=== PATIENT | female | born 1955 | race Caucasian/White ===

== ENCOUNTER 2021-01-25 13:38 | Observation (INO) ==
[2021-01-25 14:24] LABS: Basophils % 0.4 % (0.0-0.8); Eosinophils % 10.5 % (0.00-10.9); Hematocrit 41.1 VOL% (35.7-47.0); Hemoglobin 12.8 GM/DL (12.0-16.0); Immature Granulocytes % 0.3 %; Immature Granulocytes Absolute 0.03 #; Lymphocytes # 1.1 10*3/uL (1.4-4.0); Lymphocytes % 12.1 % (21.3-54.2); Mean Corpuscular HGB Conc 31.1 GM/DL (32-36); Mean Corpuscular Volume 101.2 FL (87-102); Monocytes % 8.3 % (1.7-12.7); Neutrophils % 68.4 % (38.7-73.9); Platelet Count 262 T/CUMM (130-400); Red Blood Count 4.06 MC/CUMM (3.8-5.5)
[2021-01-25 14:36] LABS: Albumin 3.5 G/DL (3.4-5.0); Bilirubin,Total 0.4 MG/DL (0.2-1.0); Calcium 9.4 MG/DL (8.5-10.1); Osmolality,Calculated 275.8 MOS/KG (273-304); Potassium 4.3 MMOL/L (3.5-5.1); Total Protein 7.3 G/DL (6.4-8.2)
[2021-01-25] MEDS ORDERED: cefTRIAXone 1,000 MG in SODIUM CHLORIDE 0.9% 100 ML IV STA (15:07)
[2021-01-25 15:18] LABS: PT Patient Result 10.3 SECS (9.8-11.9)
[2021-01-25] MEDS ORDERED: DEXTROSE 50% 25 GM/50 ML VIAL IV PRN (17:03)
[2021-01-25] MEDS ORDERED: hydrALAZINE 20 MG/1 ML VIAL IV PRN (17:03)
[2021-01-25] MEDS ORDERED: GLUCAGON 1 MG VIAL IM PRN (17:03)
[2021-01-25] MEDS ORDERED: ONDANSETRON 4 MG/2 ML VIAL IV PRN (17:03)
[2021-01-25] MEDS ORDERED: DOCUSATE SODIUM 100 MG CAPSULE PO PRN (17:03)
[2021-01-25] MEDS ORDERED: ACETAMINOPHEN 325 MG TABLET PO PRN (17:03)
[2021-01-25] MEDS: ALBUTEROL 2.5 MG/3 ML NEB RESP TX SCH (20:30)
[2021-01-25] MEDS: INSULIN REGULAR 100 UNIT/ML SUBCUT SCH (21:30)
[2021-01-25] MEDS: guaiFENesin/DM ER 600-30 MG TABLET PO SCH (22:42)
[2021-01-25] MEDS: glipiZIDE 10 MG TABLET PO SCH (22:43)
[2021-01-25] MEDS: MONTELUKAST 10 MG TABLET PO SCH (22:43)
[2021-01-25] MEDS: CETIRIZINE 10 MG TABLET PO SCH (22:43)
[2021-01-25] MEDS: GABAPENTIN 600 MG TABLET PO SCH (22:44)
[2021-01-25] MEDS: sitaGLIPtin 100 MG TABLET PO SCH (22:51)
[2021-01-25] MEDS: methylPREDNISolone SOD SUC 125 MG/2 ML VIAL IV SCH (23:00)
[2021-01-25] MEDS: ENOXAPARIN 40 MG/0.4 ML SYRINGE SUBCUT SCH (23:02)
[2021-01-25] MEDS: AZITHROMYCIN INJ 500 MG in SODIUM CHLORIDE 0.9% 250 ML IV SCH (23:03)
[2021-01-26] MEDS: ALBUTEROL 2.5 MG/3 ML NEB RESP TX SCH ×4 (00:38→19:27)
[2021-01-26] MEDS: methylPREDNISolone SOD SUC 125 MG/2 ML VIAL IV SCH ×4 (01:07→19:38)
[2021-01-26 02:33] LABS: Bilirubin,Urine Negative (Negative); Blood, Urine Negative (Negative); Glucose,Urine (UA) Negative (Negative); Ketones,Urine Negative (Negative); Nitrite,Urine Negative (Negative); Protein,Urine Negative; RBC,Urine <1 /HPF (0-4); Squamous Epithelial Cell,Urine Occasional /HPF (0-10); Urine Appearance CLEAR (Clear); Urine Color Straw (Yellow); Urine Specific Gravity 1.011 (1.001-1.035); Urine Urobilinogen < 2.0 EU/DL (0.2-1.0); WBC,Urine 3 /HPF (0-6)
[2021-01-26 05:14] LABS: Basophils % 0.1 % (0.0-0.8); Eosinophils % 0.2 % (0.00-10.9); Hematocrit 38.8 VOL% (35.7-47.0); Hemoglobin 12.4 GM/DL (12.0-16.0); Immature Granulocytes % 0.4 %; Immature Granulocytes Absolute 0.04 #; Lymphocytes # 0.4 10*3/uL (1.4-4.0); Lymphocytes % 4.2 % (21.3-54.2); Mean Platelet Volume 10.8 FL (9.6-12.0); Monocytes % 1.3 % (1.7-12.7); Neutrophils % 93.8 % (38.7-73.9); Platelet Count 248 T/CUMM (130-400); Red Blood Count 3.92 MC/CUMM (3.8-5.5); Red Cell Distribution Width 13.8 % (9.3-17.3); White Blood Count 9.2 T/CUMM (4-12)
[2021-01-26 05:40] LABS: Calcium 9.5 MG/DL (8.5-10.1); Potassium 4.2 MMOL/L (3.5-5.1); Risk Ratio 2.69; Thyroid Stimulating Hormone 1.3 uIU/ml (0.358-3.74); VLDL CHOLESTEROL 25.2 MG/DL
[2021-01-26 05:50] LABS: Lymphocytes 4 % (20-55); Platelet Estimate Adequate; Segmented Neutrophils 94 % (50-85); Total Cells Counted 100
[2021-01-26 05:51] LABS: Hypochromasia Slight
[2021-01-26] MEDS: LEVOTHYROXINE 88 MCG TABLET PO SCH (06:32)
[2021-01-26] MEDS: INSULIN REGULAR 100 UNIT/ML SUBCUT SCH ×3 (09:39→18:56)
[2021-01-26] MEDS: guaiFENesin/DM ER 600-30 MG TABLET PO SCH ×2 (09:42→21:10)
[2021-01-26] MEDS: glipiZIDE 10 MG TABLET PO SCH ×2 (09:42→21:09)
[2021-01-26] MEDS: MULTIVITAMIN (CENTRUM) TABLET PO SCH (09:43)
[2021-01-26] MEDS: PANTOPRAZOLE 40 MG TABLET PO SCH (09:43)
[2021-01-26] MEDS: ASPIRIN EC 81 MG TABLET PO SCH (09:43)
[2021-01-26] MEDS: SIMVASTATIN 10 MG TABLET PO SCH (09:43)
[2021-01-26] MEDS: GABAPENTIN 600 MG TABLET PO SCH ×3 (09:43→21:10)
[2021-01-26] MEDS: LISINOPRIL/HCTZ 20-12.5 MG TABLET PO SCH (09:43)
[2021-01-26] MEDS: cefTRIAXone 1,000 MG in SYRINGE 1 EACH IV SCH (18:51)
[2021-01-26] MEDS: AZITHROMYCIN INJ 500 MG in SODIUM CHLORIDE 0.9% 250 ML IV SCH (21:09)
[2021-01-26] MEDS: ENOXAPARIN 40 MG/0.4 ML SYRINGE SUBCUT SCH (21:09)
[2021-01-26] MEDS: sitaGLIPtin 100 MG TABLET PO SCH (21:09)
[2021-01-26] MEDS: BUDESONIDE/FORMOTEROL 160-4.5 INHALER 6 GM INH SCH (21:10)
[2021-01-26] MEDS: CETIRIZINE 10 MG TABLET PO SCH (21:10)
[2021-01-26] MEDS: MONTELUKAST 10 MG TABLET PO SCH (21:10)
[2021-01-27] MEDS: ALBUTEROL 2.5 MG/3 ML NEB RESP TX SCH ×4 (00:40→19:27)
[2021-01-27] MEDS: INSULIN REGULAR 100 UNIT/ML SUBCUT SCH ×5 (01:29→21:30)
[2021-01-27] MEDS: methylPREDNISolone SOD SUC 125 MG/2 ML VIAL IV SCH ×4 (01:29→19:37)
[2021-01-27 06:00] LABS: Basophils % 0.1 % (0.0-0.8); Hematocrit 38.2 VOL% (35.7-47.0); Hemoglobin 11.7 GM/DL (12.0-16.0); Immature Granulocytes % 0.7 %; Immature Granulocytes Absolute 0.09 #; Lymphocytes # 0.6 10*3/uL (1.4-4.0); Lymphocytes % 4.4 % (21.3-54.2); Mean Corpuscular HGB Conc 30.6 GM/DL (32-36); Mean Corpuscular Volume 100.3 FL (87-102); Mean Platelet Volume 10.8 FL (9.6-12.0); Monocytes % 3.3 % (1.7-12.7); Neutrophils % 91.5 % (38.7-73.9); Platelet Count 276 T/CUMM (130-400); Red Blood Count 3.81 MC/CUMM (3.8-5.5); Red Cell Distribution Width 13.9 % (9.3-17.3); White Blood Count 12.9 T/CUMM (4-12)
[2021-01-27] MEDS: LEVOTHYROXINE 88 MCG TABLET PO SCH (06:01)
[2021-01-27 06:15] LABS: Calcium 9.2 MG/DL (8.5-10.1); Osmolality,Calculated 287.8 MOS/KG (273-304); Potassium 4.4 MMOL/L (3.5-5.1)
[2021-01-27 06:16] LABS: Calcium 9.1 MG/DL (8.5-10.1); Osmolality,Calculated 289.7 MOS/KG (273-304); Potassium 4.5 MMOL/L (3.5-5.1)
[2021-01-27 06:29] LABS: Hypochromasia 1+; Lymphocytes 5 % (20-55); Microcytosis 1+; Platelet Estimate Adequate; Segmented Neutrophils 92 % (50-85); Total Cells Counted 100
[2021-01-27] MEDS: ASPIRIN EC 81 MG TABLET PO SCH (09:38)
[2021-01-27] MEDS: PANTOPRAZOLE 40 MG TABLET PO SCH (09:39)
[2021-01-27] MEDS: guaiFENesin/DM ER 600-30 MG TABLET PO SCH ×2 (09:39→21:45)
[2021-01-27] MEDS: MULTIVITAMIN (CENTRUM) TABLET PO SCH (09:39)
[2021-01-27] MEDS: SIMVASTATIN 10 MG TABLET PO SCH (09:39)
[2021-01-27] MEDS: LISINOPRIL/HCTZ 20-12.5 MG TABLET PO SCH (09:40)
[2021-01-27] MEDS: GABAPENTIN 600 MG TABLET PO SCH ×3 (09:42→21:45)
[2021-01-27] MEDS: glipiZIDE 10 MG TABLET PO SCH ×2 (09:43→21:43)
[2021-01-27] MEDS: BUDESONIDE/FORMOTEROL 160-4.5 INHALER 6 GM INH SCH ×2 (10:51→21:45)
[2021-01-27] MEDS: FLUTICASONE 50 MCG NASAL SPRAY 16 GM BOTTLE BOTH NARES SCH (17:03)
[2021-01-27] MEDS: cefTRIAXone 1,000 MG in SYRINGE 1 EACH IV SCH (19:37)
[2021-01-27] MEDS: sitaGLIPtin 100 MG TABLET PO SCH (21:44)
[2021-01-27] MEDS: ENOXAPARIN 40 MG/0.4 ML SYRINGE SUBCUT SCH (21:44)
[2021-01-27] MEDS: MONTELUKAST 10 MG TABLET PO SCH (21:45)
[2021-01-27] MEDS: CETIRIZINE 10 MG TABLET PO SCH (21:45)
[2021-01-28] MEDS: ALBUTEROL 2.5 MG/3 ML NEB RESP TX SCH ×3 (00:17→13:05)
[2021-01-28 05:51] LABS: Basophils % 0.2 % (0.0-0.8); Eosinophils # 0.1 10*3/uL (0.0-0.87); Eosinophils % 0.8 % (0.00-10.9); Hematocrit 40.3 VOL% (35.7-47.0); Hemoglobin 12.4 GM/DL (12.0-16.0); Immature Granulocytes % 0.8 %; Lymphocytes # 1.5 10*3/uL (1.4-4.0); Lymphocytes % 11.7 % (21.3-54.2); Mean Corpuscular HGB Conc 30.8 GM/DL (32-36); Mean Corpuscular Volume 101.8 FL (87-102); Monocytes % 8.8 % (1.7-12.7); Neutrophils % 77.7 % (38.7-73.9); Platelet Count 254 T/CUMM (130-400); Red Blood Count 3.96 MC/CUMM (3.8-5.5); Red Cell Distribution Width 14.1 % (9.3-17.3); White Blood Count 13.1 T/CUMM (4-12)
[2021-01-28] MEDS: methylPREDNISolone SOD SUC 125 MG/2 ML VIAL IV SCH ×3 (06:02→17:22)
[2021-01-28] MEDS: LEVOTHYROXINE 88 MCG TABLET PO SCH (06:02)
[2021-01-28 06:04] LABS: Calcium 9.2 MG/DL (8.5-10.1); Osmolality,Calculated 287.4 MOS/KG (273-304)
[2021-01-28] MEDS: INSULIN REGULAR 100 UNIT/ML SUBCUT SCH ×3 (07:54→17:17)
[2021-01-28] MEDS: LISINOPRIL/HCTZ 20-12.5 MG TABLET PO SCH (08:31)
[2021-01-28] MEDS: ASPIRIN EC 81 MG TABLET PO SCH (08:31)
[2021-01-28] MEDS: PANTOPRAZOLE 40 MG TABLET PO SCH (08:32)
[2021-01-28] MEDS: MULTIVITAMIN (CENTRUM) TABLET PO SCH (08:32)
[2021-01-28] MEDS: glipiZIDE 10 MG TABLET PO SCH (08:32)
[2021-01-28] MEDS: SIMVASTATIN 10 MG TABLET PO SCH (08:32)
[2021-01-28] MEDS: guaiFENesin/DM ER 600-30 MG TABLET PO SCH (08:32)
[2021-01-28] MEDS: GABAPENTIN 600 MG TABLET PO SCH ×2 (08:32→17:17)
[2021-01-28] MEDS: BUDESONIDE/FORMOTEROL 160-4.5 INHALER 6 GM INH SCH (08:33)
[2021-01-28] MEDS: FLUTICASONE 50 MCG NASAL SPRAY 16 GM BOTTLE BOTH NARES SCH (08:33)
[2021-01-28] MEDS ORDERED: BENZONATATE 100 MG CAPSULE PO PRN (11:39)
[2021-01-28] MEDS ORDERED: AZITHROMYCIN 250 MG TABLET PO SCH (12:00)
[2021-01-28 16:33] VITALS: BP 130/76
[2021-01-28] MEDS: cefTRIAXone 1,000 MG in SYRINGE 1 EACH IV SCH ×2 (17:18→17:22)
[2021-01-28] MEDS ORDERED: CEFUROXIME 500 MG TABLET PO SCH (21:00)
== END 2021-01-28 18:32 | disposition home or self-care (01) ==
LOC: EDBD → EDUNIT# → N.ED 13:38 → N.EDINP 17:04 → INTOOBSV 17:04 → N.EDINP 20:00
PROVIDERS: ADMIT Family Medicine; ATTEND Family Medicine